=== PATIENT | female | born 1945 | race Caucasian/White ===

== ENCOUNTER → 2023-06-17 07:40 | Outpatient (REF) | payer OTHER, SELFPAY | LOC: HWRAD 07:40 | PROVIDERS: ATTENDING PHYSICIAN Nurse Practitioner Primary Care; FAMILY PHYSICIAN Family Medicine; REFERRING PHYSICIAN Internal Medicine Hematology & Oncology | DX: C91.11 Chronic lymphocytic leukemia of B-cell type in remission (principal); R59.9 Enlarged lymph nodes, unspecified; D64.9 Anemia, unspecified; R53.83 Other fatigue; D80.1 Nonfamilial hypogammaglobulinemia | CPT/HCPCS: 76536 ==

== ENCOUNTER → 2024-02-27 07:58 | Outpatient (REF) | payer OTHER, SELFPAY | LOC: WDC 07:58 | PROVIDERS: ATTENDING PHYSICIAN Nurse Practitioner Adult Health; FAMILY PHYSICIAN Family Medicine | DX: Z12.31 Encounter for screening mammogram for malignant neoplasm of breast (principal) | CPT/HCPCS: 77063; 77067 ==

== ENCOUNTER → 2025-03-01 07:35 | Outpatient (REF) | payer OTHER, SELFPAY | LOC: WDC 07:35 | PROVIDERS: ATTENDING PHYSICIAN Nurse Practitioner Adult Health; FAMILY PHYSICIAN Family Medicine | DX: Z12.31 Encounter for screening mammogram for malignant neoplasm of breast (principal) | CPT/HCPCS: 77063; 77067 ==

== ENCOUNTER → 2025-03-08 10:34 | Outpatient (REF) | payer OTHER, SELFPAY | LOC: RAD 10:34 | PROVIDERS: ATTENDING PHYSICIAN Internal Medicine Endocrinology, Diabetes & Metabolism; FAMILY PHYSICIAN Family Medicine | DX: Z78.0 Asymptomatic menopausal state (principal) | CPT/HCPCS: 77080 ==